=== PATIENT | male | born 1965 | race Caucasian/White ===

== ENCOUNTER 2017-10-29 16:46 | Emergency (ER) | payer SELFPAY ==
[~2017-10-29] VITALS: Ht 177.8 cm; Wt 128.7 kg
[~2017-10-29 16:46] MED LIST: METO25TA35 PO; UNKNOWN BP MED PO
[2017-10-29] MEDS ORDERED: ADENOSINE 6 MG/2 ML ONE (17:10)
[2017-10-29] MEDS ORDERED: METOPROLOL TARTRATE 50 MG TABLET ONE (17:21)
[2017-10-29] MEDS ORDERED: ADENOSINE 6 MG/2 ML IVPush ONE (17:30)
[2017-10-29] MEDS ORDERED: METOPROLOL TARTRATE 25 MG TABLET PO ONE (17:30)
[2017-10-29 17:33] LABS: HEMATOCRIT 58.2 % (39.2-51.8); HEMOGLOBIN 19.5 g/dL (13.7-18.0); WHITE BLOOD COUNT 11.7 x10^3/uL (3.4-10)
[2017-10-29 17:40] LABS: BLOOD UREA NITROGEN 15 mg/dL (7-18)
[2017-10-29 17:44] LABS: ASPARTATE AMINO TRANSFERASE 29 U/L (15-37)
[2017-10-29 19:28] VITALS: BP 131/91
== END 2017-10-29 19:30 | disposition home or self-care (01) ==
LOC: ED 19:05
DX: I47.1 Supraventricular tachycardia (principal); F17.210 Nicotine dependence, cigarettes, uncomplicated; I10 Essential (primary) hypertension
CPT/HCPCS: 36415; 71010; 80053; 85025; 93005; 96374; 99285; J0153